=== PATIENT | male | born 1935 | race Caucasian/White ===

== ENCOUNTER → 2017-05-07 08:49 | Outpatient (CLI) | payer MEDICARE, BC ==
[2017-05-07 09:23] LABS: BASOPHILS 0.4 % (0-2); EOSINOPHILS 9.6 % (0-7); HEMATOCRIT 46.6 % (42.0-54.0); HEMOGLOBIN 15.4 g/dL (13.5-17.5); IMMATURE GRANULOCYTES 0.2 % (0-5); LYMPHOCYTES 27.7 % (15-50); MCV 90.8 fL (80.0-100.0); MEAN PLATELET VOLUME 10.2 fL (7.4-10.4); NEUTROPHILS 53.1 % (40-80); PLATELET COUNT 144 10x3/uL (130-400); RBC 5.13 10x6/uL (4.20-6.10); WBC 5.4 10x3/uL (4.8-10.8)
[2017-05-07 09:45] LABS: APPEARANCE CLEAR (CLEAR); BILIRUBIN NEGATIVE (NEGATIVE); COLOR YELLOW (YELLOW); GLUCOSE NEGATIVE (NEGATIVE); NITRITE NEGATIVE (NEGATIVE); PROTEIN NEGATIVE (NEGATIVE); SPECIFIC GRAVITY 1.015 (1.005-1.020); UROBILINOGEN NORMAL (NORMAL)
[2017-05-07 09:46] LABS: KETONE SMALL mg/dL (NEGATIVE)
[2017-05-07 09:50] LABS: ALBUMIN 3.6 g/dL (3.4-5.0); ANION GAP 11.9 mmol/L (8-16); CALCIUM 9.8 mg/dL (8.5-10.1); CARBON DIOXIDE 29.5 mmol/L (21.0-32.0); CREATININE - SERUM 1.9 mg/dL (0.6-1.3); PHOSPHOROUS 3.5 mg/dL (2.5-4.9); POTASSIUM - SERUM 4.4 mmol/L (3.5-5.1)
== END | disposition home or self-care (01) ==
LOC: D.AB 08:49
PROVIDERS: Internal Medicine Nephrology
DX: N18.3 Chronic kidney disease, stage 3 (moderate) (principal); Q60.0 Renal agenesis, unilateral; D47.2 Monoclonal gammopathy; N20.0 Calculus of kidney; I25.10 Atherosclerotic heart disease of native coronary artery without angina pectoris; N13.30 Unspecified hydronephrosis; E78.5 Hyperlipidemia, unspecified; Z68.31 Body mass index [BMI] 31.0-31.9, adult